=== PATIENT | female | born 1975 | race Caucasian/White ===

== ENCOUNTER 2016-12-15 05:22 | Day surgery (SDC) | payer BC ==
[~2016-12-15] VITALS: Ht 157.5 cm; Wt 73.9 kg
--- NOTE | ~2016-12-15 | S ---
[facility] [place] [address] SURGICAL PATH RPT PROCEDURE Name: REDD PASTOR Room #: [place]P [facility] [place].#: [id number] Admission: 12/15/16 Date of : 73 Discharge: 12/16/16 Report #: [id number] Path Case #: [id number] PATHOLOGY REPORT COLLECTION DATE: 12/15/2016 RECEIVED DATE: 12/18/2016 SUBMITTING PHYS: Dr. Marino Leung OTHER PHYS: Dr. Giulia Garcia SPECIMEN(S) RECEIVED: A.Left thyroid lobe B.Right thyroid lobe with isthmus C.Bilateral level 6 neck dissection * * * * * * * * * * * * FINAL DIAGNOSIS: A. Thyroid, left thyroid lobe, lobectomy: - 4 MM FOCUS OF PAPILLARY THYROID CARCINOMA, FOLLICULAR VARIANT. - Closest margin of resection is 3 mm away. - Background thyroid parenchyma showing moderate to marked chronic lymphocytic thyroiditis. Parathyroid, left thyroid lobe, excision: - Congestion and reactive changes. - Negative for malignancy. Lymph node (1), left thyroid lobe, biopsy: - Reactive lymph node identified in perithyroidal soft tissue. - Negative for malignancy. B. Thyroid, right thyroid lobe with isthmus, lobectomy with isthmusectomy: - PAPILLARY THYROID CARCINOMA, CLASSIC VARIANT MEASURING 2.8 CM IN GREATEST DIMENSION. - CAPSULAR INVASION IDENTIFIED, MINIMAL. - LYMPHATIC INVASION PRESENT. - TUMOR EXTENDS FOCALLY INTO SAMPLED SKELETAL MUSCLE ADJACENT TO THE THYROID. - LESS THAN 1 MM AWAY FROM THE INKED MARGIN. - Background thyroid parenchyma showing moderate to marked chronic lymphocytic thyroiditis. Parathyroid, right thyroid lobe, lobectomy: - Congested parathyroid parenchyma with reactive changes. - Negative for malignancy. Lymph nodes (2), right thyroid lobe, biopsy: - Two reactive lymph nodes identified in perithyroidal soft tissue. - Negative for malignancy. C. Lymph nodes (11), bilateral level neck dissection: - Reactive lymph nodes; negative for malignancy (0/11). SYNOPTIC CANCER STAGING REPORT [address] [address] SURGICAL PATH RPT PROCEDURE Name: REDD PASTOR Room #: [facility]..#: [id number] Admission: 12/15/16 Date of : 73 Discharge: 12/16/16 Report #: [id number] Path Case #: [id number] Specimen Site: Thyroid gland structure Primary Tumor Site: Thyroid gland structure SPECIMEN Procedure: Total thyroidectomy Lymph Node Sampling: Central compartment dissection (level -pretracheal, paratracheal and prelaryngeal / Delphian, perithyroidal) ) Other: Two incidental perithyroidal lymph nodes TUMOR Histologic Type: Papillary carcinoma -Common Significant Variants: --Classical (usual, conventional) Tumor Size: Greatest dimension (cm): 2.8 -Additional Dimension (cm): 2.5 Tumor Laterality: Right lobe Left lobe Tumor Focality: Multifocal Tumor Extent Extrathyroidal Extension: Present -Extent: --Minimal Accessory Tumor Findings Angioinvasion (vascular invasion): Not identified Lymphatic Invasion: Present Perineural Invasion: Not identified MARGINS Margins: Margins uninvolved by carcinoma -Distance of Invasive Carcinoma to Closest Margin: --Specify (mm): 1 LYMPH NODES Regional Lymph Nodes: -Number of Lymph Nodes Examined: --Specify number: 11 -Lymph Node Involvement: --None identified STAGE (PTNM) Primary Tumor (pT): pT3: Tumor more than 4 cm limited to thyroid or any tumor with minimal extrathyroid extension (e.g., extension to sternothyroid muscle or perithyroidal soft tissues) Regional Lymph Nodes (pN)#: pN0: No regional lymph node metastasis ADDITIONAL FINDINGS Additional Pathologic Findings: Parathyroid gland(s) -Present --Number of Parathyroid Glands: ---2 --Location of Parathyroid Gland(s): ---Other: Left and right --Parathyroid Gland Features: ---Within normal limits [address] [address] SURGICAL PATH RPT PROCEDURE Name: REDD PASTOR Room #: [facility].#: [id number] Admission: 12/15/16 Date of : 73 Discharge: 12/16/16 Report #: [id number] Path Case #: [id number] COMMENT: Contact Lens Curve Grinder slides (A5, B4, B6 and B8) were co-reviewed by Dr. Michela Smalls. (IUV:csd; d/t: 12/19/2016) PATHOLOGIST: Denise Gardner M.D. REPORT ELECTRONICALLY SIGNED BY: Denise Gardner M.D. DATE/TIME: 12/19/2016 14:32 * * * * * * * * * * * * GROSS PATHOLOGY: A. The specimen is received in formalin labeled "Redd Pastor, left thyroid lobe". Received is a 10 g unoriented thyroid lobe measuring 5.1 x 2.5 x 1.9 cm in greatest dimensions. The capsule is disrupted in appearance with a slight amount of overlying adhesions. The specimen is inked black. Sectioning reveals white-bernard to light bernard cut surfaces encompassing approximately 85% of the thyroid lobe. The remainder of the specimen is comprised of normal red-brown thyroid parenchyma. Alternating sections are submitted in cassettes A1 through A8, to encompass approximately 60% of the lobe. B. The specimen is received in formalin labeled "Redd Pastor, right thyroid lobe with isthmus". Received is a 20 g, 6.3 x 3.5 x 2.8 cm unoriented thyroid lobe with attached isthmus; however, the isthmus cannot be differentiated. The capsule is disrupted in appearance with a moderate amount of overlying adhesions. The specimen is inked blue. Sectioning reveals white-bernard to light bernard cut surfaces, which encompasses approximately 95 % of the lobe. A slight amount of normal red-brown thyroid parenchyma is present. The specimen is submitted representatively in cassettes B1 through B10, to encompass approximately 60% of the specimen. C. The specimen is received in formalin labeled "Redd Pastor, bilateral level neck dissection". Received is a segment of yellow-bernard to light bernard lobulated tissue measuring 4.2 x 2.8 x 1.1 cm in aggregate dimensions. Dissection and palpation of the specimen reveals 11 readily identifiable lymph nodes ranging in size from 0.4 to 1.1 cm in maximum dimensions. The lymph nodes are submitted as follows: C1-C3 intact lymph nodes C4 one bisected lymph node. (CAA; 12/18/2016) CLINICAL HISTORY: Papillary thyroid cancer INITIAL CPT CODE(S): A; [address], [address] [address] SURGICAL PATH RPT PROCEDURE Name: REDD PASTOR Room #: DEP [facility].#: [id number] Admission: 12/15/16 Date of : 73 Discharge: 12/16/16 Report #: [id number] Path Case #: [id number]; [id number], [id number] C; [id number] Professional services performed by [facility] at [place] [address], [place] [address] Technical services performed by [facility] at [address] [place] [address], [place] [address]. [facility] [place] [address] PHONE: [phone] DIRECTOR: Erik Flores M.D. * * * END OF REPORT * * *
--- NOTE | ~2016-12-15 | O ---
[facility] [place] [address] OPERATIVE REPORT Name: REDD ALEX Room #: DEP [facility]..#: [id number] Admission: 12/15/16 Attend Phys: Marino Leung MD Discharge: 12/16/16 Date of : 73 Report #: [id number] THIS REPORT FOR: //name// CC: Marino Garcia DATE OF SERVICE: 12/15/2016 SURGEON: Dr. Marino Leung PREOPERATIVE DIAGNOSIS: Papillary carcinoma of the thyroid. POSTOPERATIVE DIAGNOSIS: Papillary carcinoma of the thyroid. OPERATION PERFORMED: 1. Total thyroidectomy. 2. Level 6 neck dissection. INDICATIONS: The patient is a 41-year-old female presenting from her primary care doctor, Dr. Garcia for recent diagnosis of papillary carcinoma after a right thyroid nodule was noted on routine physical examination. An ultrasound had been done showing a complex ill-defined nodule in the mid left lobe measuring 4.8 x 5.2 x 3.3 mm and a solid nodule in the right thyroid measuring 2.3 x 1.4 x 1.7 cm with internal vascularity and small calcifications. Fine needle aspiration was done 11/30/2016, showing papillary carcinoma. The patient was seen and surgery recommended. The patient is biochemically euthyroid. DESCRIPTION OF PROCEDURE: The patient was brought to the operating room and placed supine on the operating table. After adequate general anesthesia was achieved via endotracheal intubation with a nerve integrity monitoring endotracheal tube, the shoulder was placed and neck was extended. As a separate part of the procedure, the XSlidebean nerve integrity monitor was applied to the electrodes from the endotracheal tube. Ground electrodes were placed in the soft tissue overlying the sternum and contralateral shoulder. Electrode resistance and impedance was measured and found to be acceptable. Threshold and stimulus intensity parameters were set, and the patient was monitored for the entirety of the case of approximately 2 hours in order to locate and protect the recurrent laryngeal nerve. She was then prepped and draped in a sterile fashion. The procedure began with incision through skin and subcutaneous tissue, platysma. Subplatysmal flaps were elevated superiorly and inferiorly. Dissection was made down to the strap muscles. These were divided vertically in the midline and retracted laterally. Dissection began on the patient's left [address] [address] OPERATIVE REPORT Name: REDD ALEX Room #: DEP [facility]..#: [id number] Admission: 12/15/16 Attend Phys: Marino Leung MD Discharge: 12/16/16 Date of : 73 Report #: [id number] side, which was the least side of the tumor bulk. The thyroid was then dissected free from the overlying soft tissue and strap muscles. Exposure of the superior and inferior vessels were made. The middle thyroid vein was taken down between the Ligaclips and divided. Dissection then continued across the midline. The isthmus was defined and then the right lobe dissected. This lobe had a large mass in the mid lobe that was stuck to the overlying sternohyoid muscle. For that reason, the mid portion of this strap muscle was sacrificed and left attached to the specimen in case there was any erosion through the capsule. This was dissected again at the superior and inferior vessels. The middle thyroid vein was identified, clamped between Ligaclips and divided. Beginning superiorly, the superior thyroid artery and vein were sequentially identified, clamped between Ligaclips and divided. Inferiorly, the inferior thyroid artery and vein were identified, clamped between Ligaclips and divided. The isthmus was then taken down with the Harmonic forceps and a soft tissue attachments to the trachea taken down. This gland was then rolled up on to the trachea. Dissection was made in the tracheoesophageal groove. The recurrent nerve was found in its usual anatomic position. This was dissected superiorly to the cricothyroid joint with careful tedious dissection, keeping the nerve in direct vision. Once this was positively identified, the soft tissue attachments medial, superior and anterior were taken down. Green's ligament was then taken down sharply and the superior vessels were sequentially identified, clamped between Ligaclips and divided. The superior parathyroid on this side was attached to the capsule. This was able to be dissected free and protected. The inferior parathyroid on this side was running with the inferior thyroid artery also identified and protected. The nerve was stimulated at the end of dissection and found to be intact. This lobe was delivered off the field as specimen. Attention was then turned to the left lobe, beginning again inferiorly. The inferior vessels were sequentially identified, clamped between Ligaclips and divided. Superior vessels also were sequentially identified, clamped between Ligaclips and divided. Middle thyroid vein was taken down between Ligaclips. The gland was rolled up on to the trachea. Dissection in the tracheoesophageal groove revealed the recurrent nerve in the usual anatomic position. This was tracked superiorly to the cricothyroid joint. Green's ligament again was taken down sharply keeping the nerve in direct vision. Again on this side, the superior parathyroid was attached to the capsule and protected on its blood supply and dissected and removed laterally. The inferior parathyroid on this side also was found and protected running with the inferior thyroid artery. Once Green's ligament was taken down, this lobe was delivered off the field as specimen as well. Hemostasis was then assured with bipolar cauterization. Beginning on the patient's right side, which was the site of increased tumor burden, dissection was made along the recurrent nerve inferiorly to the upper mediastinum. All lymph node bearing tissue was then moved to the midline. The borders of this level 6 neck dissection included the carotid artery on each side inferiorly to the thymus and superiorly to the cricoid. The lymph node bearing tissue was moved from lateral to medial after identifying the nerve. Care was taken to protect the inferior parathyroid on this side. The [address] [address] OPERATIVE REPORT Name: REDD ALEX Room #: DEP [facility] M.R.#: [id number] Admission: 12/15/16 Attend Phys: Marino Leung MD Discharge: 12/16/16 Date of : 73 Report #: [id number] soft tissue was dissected to midline and then left. Attention was then turned to the opposite side there. On this side as well, the dissection was made from superior to inferior dissecting the recurrent laryngeal nerve to the upper mediastinum and again all lymph node bearing tissue was dissected from the carotid sheath medially. This was lifted off the top of the nerve and dissected to the midline. The level 6 neck dissection was then delivered off the field as specimen. There were multiple lymph nodes present. Both nerves were then stimulated at the end of the case and found to be intact. All four parathyroids were identified and appeared to be viable. Wound was irrigated. Hemostasis again was assured with bipolar cautery and clip ligature. At this point, powdered Destinee was placed opposite each cricothyroid joint. A #10-Seneg[place]e Burke drain was placed through a separate stab incision, curled into the wound and connected to bulb suction. This drain was sutured in place with 2-0 silk. The strap muscles were then closed in the midline with interrupted 3-0 Vicryl. Again, a portion of the sternohyoid muscle had been removed on the right. The platysmal layer was then closed with interrupted 3-0 Vicryl and then 4-0 Vicryl deep dermal sutures were used to close the skin followed by a 5-0 running subcuticular Prolene. Mastisol and Steri-Strips were applied followed by an Op-Site. The drain was connected to bulb suction. The patient was then returned to anesthesia, awake without difficulty and returned to recovery in good condition. Sponge and needle counts were correct. There were no complications and the blood loss was about 25 mL. The patient will be watched overnight for monitoring of calcium. Presuming she does well, discharged to home with plans to follow me in 2 weeks. Written and verbal discharge instructions and emergency precautions have been given to her . DISCHARGE MEDICATIONS: Will include Keflex 500 mg 1 b.i.d. for 10 days, hydrocodone/acetaminophen 7.5/325 1-2 q. 4-6h. p.r.n., Phenergan suppository 25 mg 1 per rectum q. 4-6 hours p.r.n., Synthroid 100 mcg 1 p.o. every day, Tums 2 tablets t.i.d. for 10 days. She is instructed on light activity and a soft diet. <ELECTRONICALLY SIGNED> By: Marino Leung MD 12/22/16 [id number] [id number] Marino Leung MD /nt
[2016-12-15 10:40] VITALS: BP 127/79
[2016-12-15 16:30] LABS: ALBUMIN 3.3 g/dL (3.4-5.0); MAGNESIUM 1.7 mg/dL (1.8-2.4)
[2016-12-15 19:00] VITALS: BP 116/76
[2016-12-15 20:00] VITALS: BP 119/74
[2016-12-15 21:00] VITALS: BP 117/73
[2016-12-16 05:40] VITALS: BP 120/70
[2016-12-16 07:12] VITALS: BP 114/64
[2016-12-16 10:27] VITALS: BP 114/64
== END 2016-12-16 11:39 | disposition home or self-care (01) ==
LOC: TBA 05:22 → OR 05:22 → 5S 16:57 → OR 12-16 11:39
PROVIDERS: Otolaryngology Plastic Surgery within the Head & Neck
DX: C73 Malignant neoplasm of thyroid gland (principal)
CPT/HCPCS: 50010; 50101; 50331; 50417; 51412; 52190; 52220; 52287; 56524; 56526; 56528; 56760; 57006; 62110; 62900; 65006; 70005